=== PATIENT | female | born 1960 | race African-American/Black ===

== ENCOUNTER 2020-08-05 01:44 | Inpatient (IN) | payer MEDICAID ==
[~2020-08-05] VITALS: Ht 167.6 cm; Wt 154.5 kg
[~2020-08-05 01:44] MED LIST: BACL10TA PO; GABA300C10 PO; LEVO100T8 PO; MAGN400C2 PO; METO25TA5 PO
[2020-08-05 03:15] LABS: Basophils # (auto) 0.1 10 ^3/uL (0-0.2); Basophils % (auto) 1.6 % (0.0-2.0); Eosinophils # (auto) 0.1 10 ^3/uL (0-0.8); Eosinophils % (auto) 1.9 % (0.0-7.0); Hematocrit 38.5 % (36.0-46.0); Lymphocytes # (auto) 2.8 10 ^3/uL (0.4-5.4); Lymphocytes % (auto) 36.5 % (10.0-50.0); Mean Corpuscular Hgb Conc. 33.9 g/dL (32.0-36.0); Mean Corpuscular Volume 103.3 fL (80.0-100.0); Monocytes # (auto) 0.4 10 ^3/uL (0-1.3); Monocytes % (auto) 5.8 % (0.0-12.0); Neutrophils # (auto) 4.2 10 ^3/uL (1.6-8.6); Neutrophils % (auto) 54.2 % (37.0-80.0); Nucleated Red Blood Cells % 0.1 %; Platelet Count (auto) 250 10^3/uL (140-450); Red Blood Cells 3.73 10^6/uL (4.0-5.20); Red Cell Distribution Width 15.3 % (11.8-14.3); White Blood Cell 7.7 10^3/uL (4.4-10.8)
[2020-08-05 03:31] LABS: Albumin 3.3 g/dL (3.4-5.0); Calcium 8.4 mg/dL (8.5-10.1); Potassium 4.3 mmol/L (3.5-5.1)
[2020-08-05 03:34] LABS: BUN/Creatinine Ratio 8.1; Bilirubin, Total 0.4 mg/dL (0.2-1.0); Total Protein 8.1 g/dL (6.4-8.2)
[2020-08-05] MEDS ORDERED: SODIUM CHLORIDE 0.9% 1,000 ML IV SCH (05:44)
[2020-08-05] MEDS ORDERED: ACETAMINOPHEN 325 MG TAB PO PRN (05:45)
[2020-08-05] MEDS ORDERED: LORazepam 0.5 MG TAB PO PRN (05:45)
[2020-08-05] MEDS ORDERED: HYDROcodone-ACET 5/325MG TAB PO ONE (05:45)
[2020-08-05] MEDS ORDERED: ONDANSETRON HCL 4 MG/2 ML VIAL IV PRN (05:45)
[2020-08-05] MEDS ORDERED: DOCUSATE SOD 100 MG CAP PO PRN (05:45)
[2020-08-05] MEDS ORDERED: LIDOCAINE 1% HCL (LOCAL ANESTH.) INJ 20ML MDV ID ONE (05:45)
[2020-08-05] MEDS ORDERED: TEMAZEPAM 15 MG CAP PO PRN (05:45)
[2020-08-05 05:49] LABS: Urine Bacteria NONE SEEN /hpf (None Seen); Urine Blood Negative /uL (Negative); Urine Specific Gravity 1.003 (1.001-1.035); Urine WBC 1 /hpf (0 - 5)
[2020-08-05] MEDS ORDERED: MAGNESIUM SULFATE 1GM/100ML 100 ML IV ONE (08:45)
[2020-08-05 09:12] LABS: Amphetamine Screen, Urine NEGATIVE (NEGATIVE); Barbiturate Scree,Urine NEGATIVE (NEGATIVE); Benzodiazephine Screen, Urine NEGATIVE (NEGATIVE); Cannabinoid Screen, Urine NEGATIVE (NEGATIVE); Cocaine Screen, Urine NEGATIVE (NEGATIVE); Opiate Scree,Urine NEGATIVE (NEGATIVE); Phencyclidine Screen, Urine NEGATIVE (NEGATIVE)
[2020-08-05] MEDS ORDERED: FOLIC ACID 1 MG, MULTIPLE VITAMIN 10 ML, MAGNESIUM SULF SDV 50% 8 MEQ, THIAMINE INJ 100... INJ SCH ×5 (09:30)
[2020-08-05] MEDS ORDERED: LEVO200T7 PO (09:38)
[2020-08-05] MEDS: HYDROcodone-ACET 5/325MG TAB PO PRN ×3 (09:57→19:51)
[2020-08-05] MEDS: METOPROLOL TARTRATE 25 MG TAB PO SCH ×2 (10:00→22:10)
[2020-08-05] MEDS ORDERED: LEVOTHYROXINE SODIUM 100 MCG TAB PO ONE (11:15)
[2020-08-05] MEDS: FOLIC ACID 1 MG, MULTIPLE VITAMIN 10 ML, MAGNESIUM SULF SDV 50% 8 MEQ, THIAMINE INJ 100... INJ SCH ×5 (12:16)
[2020-08-05 12:35] VITALS: BP 134/71
[2020-08-05 17:00] VITALS: BP 143/88
[2020-08-05] MEDS ORDERED: DIPH25CA66 PO (17:19)
[2020-08-05] MEDS ORDERED: MULT1CHW18 PO (17:19)
[2020-08-05 20:00] VITALS: BP 150/85
[2020-08-05 22:00] VITALS: BP 150/85
[2020-08-06] MEDS: HYDROcodone-ACET 5/325MG TAB PO PRN ×3 (00:18→11:31)
[2020-08-06 05:00] VITALS: BP 143/70
[2020-08-06 05:52] LABS: Basophils # (auto) 0 10 ^3/uL (0-0.2); Basophils % (auto) 0.6 % (0.0-2.0); Eosinophils # (auto) 0.1 10 ^3/uL (0-0.8); Eosinophils % (auto) 1.4 % (0.0-7.0); Hematocrit 36.6 % (36.0-46.0); Hemoglobin 12.1 g/dL (12.2-16.2); Lymphocytes # (auto) 1.2 10 ^3/uL (0.4-5.4); Mean Corpuscular Hemoglobin 34.3 pg (28.0-32.0); Mean Corpuscular Hgb Conc. 33.1 g/dL (32.0-36.0); Mean Corpuscular Volume 103.5 fL (80.0-100.0); Monocytes # (auto) 0.4 10 ^3/uL (0-1.3); Monocytes % (auto) 7.4 % (0.0-12.0); Neutrophils # (auto) 3.5 10 ^3/uL (1.6-8.6); Neutrophils % (auto) 67.6 % (37.0-80.0); Nucleated Red Blood Cells % 0.2 %; Platelet Count (auto) 232 10^3/uL (140-450); Red Blood Cells 3.53 10^6/uL (4.0-5.20); Red Cell Distribution Width 14.9 % (11.8-14.3); White Blood Cell 5.2 10^3/uL (4.4-10.8)
[2020-08-06 06:14] LABS: Potassium 3.9 mmol/L (3.5-5.1)
[2020-08-06 06:23] LABS: Albumin 2.9 g/dL (3.4-5.0); Bilirubin, Total 0.6 mg/dL (0.2-1.0); Calcium 8.1 mg/dL (8.5-10.1); Total Protein 6.7 g/dL (6.4-8.2)
[2020-08-06] MEDS ORDERED: LEVOTHYROXINE SODIUM 100 MCG TAB PO SCH (07:00)
[2020-08-06 08:30] VITALS: BP 125/44
[2020-08-06 09:03] VITALS: BP 125/44
[2020-08-06] MEDS: FOLIC ACID 1 MG, MULTIPLE VITAMIN 10 ML, MAGNESIUM SULF SDV 50% 8 MEQ, THIAMINE INJ 100... INJ SCH ×5 (12:00)
[2020-08-06 12:42] VITALS: BP 145/66
[2020-08-06 14:15] VITALS: BP 145/61
[2020-08-07] MEDS ORDERED: amLODIPine BESYLATE 5 MG TAB PO SCH (10:00)
== END 2020-08-06 17:00 | disposition home or self-care (01) | DRG 384 ==
LOC: EDBD 01:44 → ER 01:46 → TELE-WESTW 01:47
PROVIDERS: ADMIT Hospitalist; ATTEND Internal Medicine
PROC: 0HQKXZZ Repair Right Lower Leg Skin, External Approach (ICD-10-PCS; principal; 2020-08-05)
DX: S91.011A Laceration without foreign body, right ankle, initial encounter (principal); R00.8 Other abnormalities of heart beat; I49.3 Ventricular premature depolarization; F10.129 Alcohol abuse with intoxication, unspecified; Y90.8 Blood alcohol level of 240 mg/100 ml or more; S93.401A Sprain of unspecified ligament of right ankle, initial encounter; E03.9 Hypothyroidism, unspecified; E66.9 Obesity, unspecified; Z68.43 Body mass index [BMI] 50.0-59.9, adult; I10 Essential (primary) hypertension; I27.21 Secondary pulmonary arterial hypertension; Z87.891 Personal history of nicotine dependence; Z88.8 Allergy status to other drugs, medicaments and biological substances; E78.5 Hyperlipidemia, unspecified; J44.9 Chronic obstructive pulmonary disease, unspecified; Z82.49 Family history of ischemic heart disease and other diseases of the circulatory system; Z82.5 Family history of asthma and other chronic lower respiratory diseases; Z83.3 Family history of diabetes mellitus; Z98.1 Arthrodesis status; Y93.89 Activity, other specified; Y92.89 Other specified places as the place of occurrence of the external cause; Y99.8 Other external cause status
CPT/HCPCS: 36415; 71045; 73600; 80053; 80307; 81001; 83735; 83880; 84443; 84484; 85025; 93005; 93306; G0378; J2001

== ENCOUNTER 2024-03-17 18:07 | Inpatient (IN) | payer MEDICAID, OTHER ==
[~2024-03-17] VITALS: Ht 162.6 cm; Wt 78.2 kg
[~2024-03-17 18:07] MED LIST changes: -BACL10TA PO; +DIPH25CA66 PO; -GABA300C10 PO; -LEVO100T8 PO; +LEVO200T7 PO; -MAGN400C2 PO; -METO25TA5 PO; +MULT1CHW18 PO
[2024-03-17 19:30] VITALS: PULSE 97; RESP 20; O2SAT 99
[2024-03-17 19:47] LABS: Basophils # (auto) 0 10 ^3/uL (0-0.2); Basophils % (auto) 0.6 % (0.0-2.0); Eosinophils # (auto) 0.3 10 ^3/uL (0-0.8); Eosinophils % (auto) 5.3 % (0.0-7.0); Hematocrit 27.8 % (36.0-46.0); Lymphocytes # (auto) 1.9 10 ^3/uL (0.4-5.4); Lymphocytes % (auto) 32.1 % (10.0-50.0); Mean Corpuscular Hemoglobin 31.9 pg (28.0-32.0); Mean Corpuscular Hgb Conc. 32.2 g/dL (32.0-36.0); Monocytes # (auto) 0.4 10 ^3/uL (0-1.3); Monocytes % (auto) 6.1 % (0.0-12.0); Neutrophils # (auto) 3.3 10 ^3/uL (1.6-8.6); Neutrophils % (auto) 55.9 % (37.0-80.0); Nucleated Red Blood Cells % 0.2 %; Red Blood Cells 2.81 10^6/uL (4.0-5.20); Red Cell Distribution Width 22.2 % (11.8-14.3)
[2024-03-17 19:56] LABS: Chloride 105 mmol/L (98-107); Potassium 2.6 mmol/L (3.5-5.1)
[2024-03-17 19:57] LABS: Calcium 8.7 mg/dL (8.7-10.4); Carbon Dioxide 24 mmol/L (20-30)
[2024-03-17 20:02] LABS: BUN/Creatinine Ratio 5.7 (10.0-20.0); Blood Urea Nitrogen 7 mg/dL (9-23); Glucose 122 mg/dL (74-106)
[2024-03-17 20:04] LABS: INR 1.16 (0.9-1.15); Partial Thromboplastin Time 27.7 SEC (24.5-34.5); Prothrombin Time 12.2 sec (9.3-11.8)
[2024-03-17] MEDS: PANTOPRAZOLE 40 MG/10 ML VIAL INJ IV ONE (20:23)
[2024-03-17 20:32] LABS: Anion Gap 11 (5-15); Sodium 140 mmol/L (136-145)
[2024-03-17 22:52] LABS: Urine Bacteria MOD /hpf (None Seen); Urine Blood 1+ /uL (Negative); Urine Budding Yeast MODERATE /hpf (None Seen); Urine Clarity Ex.Turbid (Clear); Urine Color STRAW (Yellow); Urine Hyaline Cast FEW /lpf (0 - 2); Urine Protein, UAD TRACE (Negative); Urine Specific Gravity 1.004 (1.001-1.035); Urine Urobilinogen Normal (Negative); Urine WBC 607 /hpf (0 - 5); Urine WBC Clumps PRESENT /hpf (None Seen); Urine pH 5.5 (5.0-9.0)
[2024-03-17] MEDS ORDERED: MORPHINE SULFATE INJ 2 MG/ml SYRG IV PRN (23:45)
[2024-03-17] MEDS ORDERED: DOCUSATE SOD 100 MG CAP PO PRN (23:45)
[2024-03-17] MEDS ORDERED: ONDANSETRON HCL 4 MG/2 ML VIAL IV PRN (23:45)
[2024-03-17] MEDS ORDERED: ACETAMINOPHEN 325 MG TAB PO PRN (23:45)
[2024-03-17] MEDS ORDERED: NITROGLYCERIN 0.4 MG SL TAB SL PRN (23:45)
[2024-03-17] MEDS: cefTRIAXone 1GM/50ML D5W 50 ML IV ONE (23:48)
[2024-03-17] MEDS: POTASSIUM CHL 20 Meq TABLET PO ONE (23:49)
[2024-03-18] MEDS: MORPHINE SULFATE INJ 2 MG/ml SYRG IV ONE (00:03)
[2024-03-18] MEDS: ONDANSETRON HCL 4 MG/2 ML VIAL IV ONE (00:04)
[2024-03-18 00:20] LABS: Lactic Acid w/Reflex 2.3 mmol/L (0.4-2.0)
[2024-03-18] MEDS ORDERED: D5W/SOD CHL 0.45% 1,000 ML IV ONE (03:45)
[2024-03-18] MEDS: SOD CHL 0.45% 1,000 ML IV SCH (03:45)
[2024-03-18] MEDS: HYDROcodone-ACET 5/325MG TAB PO PRN (05:17)
[2024-03-18] MEDS: LEVOTHYROXINE SODIUM 50 MCG TAB PO SCH (06:37)
[2024-03-18] MEDS: SODIUM CHLOR 0.9% PF (SALINE LOCK) 10ML VIAL/SYR IV SCH (06:41)
[2024-03-18 07:13] LABS: Eosinophils # (auto) 0.2 10 ^3/uL (0-0.8); Eosinophils % (auto) 3.5 % (0.0-7.0); Hemoglobin 7.5 g/dL (12.2-16.2); Monocytes # (auto) 0.5 10 ^3/uL (0-1.3); Neutrophils # (auto) 3.9 10 ^3/uL (1.6-8.6); White Blood Cell 6.4 10^3/uL (4.4-10.8)
[2024-03-18 07:15] LABS: Basophils # (auto) 0.1 10 ^3/uL (0-0.2); Basophils % (auto) 0.9 % (0.0-2.0); Hematocrit 23.5 % (36.0-46.0); Lymphocytes # (auto) 1.7 10 ^3/uL (0.4-5.4); Lymphocytes % (auto) 27.1 % (10.0-50.0); Mean Corpuscular Hemoglobin 32.1 pg (28.0-32.0); Mean Corpuscular Hgb Conc. 32.1 g/dL (32.0-36.0); Mean Corpuscular Volume 99.9 fL (80.0-100.0); Monocytes % (auto) 7.9 % (0.0-12.0); Neutrophils % (auto) 60.6 % (37.0-80.0); Red Blood Cells 2.36 10^6/uL (4.0-5.20); Red Cell Distribution Width 22.6 % (11.8-14.3)
[2024-03-18 07:25] LABS: Alanine Aminotransferase 52 U/L (7-40); Albumin 3.2 g/dL (3.2-4.8); Alkaline Phosphatase 139 U/L (46-116); Anion Gap 9 (5-15); Aspartate Aminotransferase 132 U/L (13-40); BUN/Creatinine Ratio 5.6 (10.0-20.0); Blood Urea Nitrogen 7 mg/dL (9-23); Calcium 7.9 mg/dL (8.5-10.1); Carbon Dioxide 22 mmol/L (20-30); Chloride 112 mmol/L (98-107); Glucose 112 mg/dL (74-106); Potassium 3.4 mmol/L (3.5-5.1); Sodium 143 mmol/L (136-145)
[2024-03-18 07:26] LABS: Bilirubin, Total 0.3 mg/dL (0.2-1.0); Total Protein 6.2 g/dL (5.7-8.2)
[2024-03-18 07:30] VITALS: PULSE 83
[2024-03-18 08:20] VITALS: BP 124/65; PULSE 84; RESP 20; TEMP 98.3
[2024-03-18 09:00] VITALS: BP 124/65; PULSE 84; RESP 20; TEMP 98.3; O2SAT 97
[2024-03-18] MEDS: FAMOTIDINE (10MG/ML) 2ML VL IV SCH (09:04)
[2024-03-18 12:28] VITALS: BP 153/75; PULSE 89; RESP 21; TEMP 98.3; O2SAT 95
[2024-03-18] MEDS: D5W/SOD CHL 0.9%/KCL 40MEQ 1,000 ML IV ONE (13:42)
[2024-03-18 14:01] LABS: Hemoglobin 7.5 g/dL (12.2-16.2)
[2024-03-18] MEDS ORDERED: KETO0.5S31 EACHEYE (14:03)
[2024-03-18] MEDS ORDERED: OFL50TS OT (14:03)
[2024-03-18] MEDS ORDERED: PRED1SUS4 OP (14:03)
[2024-03-18] MEDS ORDERED: AMLO1TAB22 PO (14:04)
[2024-03-18] MEDS ORDERED: KETO0.5S31 RIGHTEYE (14:38)
[2024-03-18] MEDS ORDERED: OFL50TS RIGHTEYE (14:39)
[2024-03-18 17:04] VITALS: BP 137/66; PULSE 84; RESP 20; TEMP 97.9; O2SAT 98
[2024-03-18] MEDS ORDERED: prednisoLONE ACETATE 1% OPTH SUSP 5ML OP SCH (18:00)
[2024-03-18] MEDS ORDERED: OFLOXACIN OTIC(EAR) 0.3 % DROP 5ML OT SCH (18:00)
[2024-03-18] MEDS: prednisoLONE ACETATE 1% OPTH SUSP 5ML RIGHTEYE SCH (18:00)
[2024-03-18] MEDS: [UNRECOGNIZED DRUG - OTHER] RIGHTEYE SCH (18:17)
[2024-03-18] MEDS: [UNRECOGNIZED DRUG - OTHER] RIGHTEYE SCH (18:17)
[2024-03-18 21:00] VITALS: BP 121/57; PULSE 90; RESP 18; TEMP 98.2; O2SAT 98
[2024-03-18] MEDS: cefTRIAXone 1GM/50ML D5W 50 ML IV SCH (21:57)
[2024-03-18] MEDS: PANTOPRAZOLE 40 MG TAB PO SCH (21:58)
[2024-03-19 01:00] VITALS: BP 130/69; PULSE 92; RESP 18; TEMP 97.7; O2SAT 95
[2024-03-19 05:00] VITALS: BP 132/61; PULSE 75; RESP 18; TEMP 98.2; O2SAT 97
[2024-03-19 07:27] LABS: Anion Gap 7 (5-15); Carbon Dioxide 24 mmol/L (20-30); Chloride 109 mmol/L (98-107); Potassium 3.4 mmol/L (3.5-5.1); Sodium 140 mmol/L (136-145)
[2024-03-19 07:28] LABS: Calcium 8.1 mg/dL (8.7-10.4)
[2024-03-19 07:33] LABS: BUN/Creatinine Ratio 3.9 (10.0-20.0); Blood Urea Nitrogen 5 mg/dL (9-23); Glucose 98 mg/dL (74-106)
[2024-03-19 08:30] VITALS: BP 123/62; PULSE 80; RESP 14; TEMP 97.6
[2024-03-19 08:52] VITALS: BP 123/62; PULSE 80; RESP 14; TEMP 97.6; O2SAT 96
[2024-03-19] MEDS: amLODIPine BESYLATE 5 MG TAB PO SCH (09:19)
[2024-03-19] MEDS ORDERED: PANT40TA2 PO (10:03)
[2024-03-19] MEDS ORDERED: CEPH500C PO (10:05)
[2024-03-19] MEDS ORDERED: DIPH50TA9 PO (10:05)
[2024-03-19 10:43] VITALS: BP 123/62; PULSE 80; RESP 14; TEMP 97.6; O2SAT 96
[2024-03-19 10:55] LABS: Hematocrit 22.2 % (36.0-46.0); Hemoglobin 7.1 g/dL (12.2-16.2)
== END 2024-03-19 17:00 | disposition home or self-care (01) | DRG 253 ==
LOC: ER 18:07 → EDBD 18:07 → EDUNIT# 18:07 → TELE 23:52 → TELE-WESTW 03-18 03:50 → WEST WING 03-19 01:57
PROVIDERS: ADMIT Nurse Practitioner Acute Care; ATTEND Nurse Practitioner Acute Care
DX: K92.2 Gastrointestinal hemorrhage, unspecified (principal); R71.0 Precipitous drop in hematocrit; N39.0 Urinary tract infection, site not specified; E87.6 Hypokalemia; E66.9 Obesity, unspecified; E03.9 Hypothyroidism, unspecified; K59.00 Constipation, unspecified; I10 Essential (primary) hypertension; Z88.2 Allergy status to sulfonamides; Z79.899 Other long term (current) drug therapy; Z79.2 Long term (current) use of antibiotics; Z82.49 Family history of ischemic heart disease and other diseases of the circulatory system; Z87.891 Personal history of nicotine dependence; Z83.3 Family history of diabetes mellitus; Z82.5 Family history of asthma and other chronic lower respiratory diseases; Z90.49 Acquired absence of other specified parts of digestive tract; Z68.29 Body mass index [BMI] 29.0-29.9, adult
CPT/HCPCS: 36415; 74176; 80048; 80053; 81001; 82270; 83036; 83605; 84443; 85014; 85018; 85025; 85610; 85730; 86850; 86900; 86901; 87040; 87086; C9113; G0378; J2405; J3490

== ENCOUNTER 2024-03-22 21:23 | Inpatient (IN) | payer MEDICAID, OTHER ==
[~2024-03-22] VITALS: Ht 167.6 cm; Wt 72.1 kg
[~2024-03-22 21:23] MED LIST changes: +AMLO1TAB22 PO; +CEPH500C PO; +DIPH50TA9 PO; +KETO0.5S31 RIGHTEYE; -MULT1CHW18 PO; +OFL50TS RIGHTEYE; +PANT40TA2 PO; +PRED1SUS4 OP
[2024-03-22 23:46] LABS: Basophils # (auto) 0 10 ^3/uL (0-0.2); Basophils % (auto) 0.7 % (0.0-2.0); Eosinophils # (auto) 0.2 10 ^3/uL (0-0.8); Eosinophils % (auto) 4.2 % (0.0-7.0); Hematocrit 18.4 % (36.0-46.0); Lymphocytes # (auto) 1.5 10 ^3/uL (0.4-5.4); Lymphocytes % (auto) 26.8 % (10.0-50.0); Mean Corpuscular Hemoglobin 31.9 pg (28.0-32.0); Mean Corpuscular Hgb Conc. 31.3 g/dL (32.0-36.0); Mean Corpuscular Volume 101.9 fL (80.0-100.0); Monocytes # (auto) 0.5 10 ^3/uL (0-1.3); Monocytes % (auto) 9.1 % (0.0-12.0); Neutrophils # (auto) 3.3 10 ^3/uL (1.6-8.6); Neutrophils % (auto) 59.2 % (37.0-80.0); White Blood Cell 5.6 10^3/uL (4.4-10.8)
[2024-03-22 23:48] LABS: Hemoglobin 5.7 g/dL (12.2-16.2)
[2024-03-22 23:50] LABS: Alanine Aminotransferase 32 U/L (7-40); Alkaline Phosphatase 144 U/L (46-116); Anion Gap 9 (5-15); Aspartate Aminotransferase 59 U/L (13-40); BUN/Creatinine Ratio 7.8 (10.0-20.0); Blood Urea Nitrogen 9 mg/dL (9-23); Calcium 8.1 mg/dL (8.7-10.4); Carbon Dioxide 20 mmol/L (20-30); Chloride 107 mmol/L (98-107); Glucose 91 mg/dL (74-106); Potassium 4.1 mmol/L (3.5-5.1); Sodium 136 mmol/L (136-145)
[2024-03-22 23:51] LABS: Albumin 3.2 g/dL (3.2-4.8); Bilirubin, Total 0.4 mg/dL (0.2-1.0); Total Protein 5.9 g/dL (5.7-8.2)
[2024-03-22 23:59] LABS: INR 1.15 (0.9-1.15); Partial Thromboplastin Time 21.4 SEC (24.5-34.5); Prothrombin Time 12.1 sec (9.3-11.8)
[2024-03-23] VITALS (9 sets, daily range): BP systolic 98–143; BP diastolic 48–68; PULSE 70–88; RESP 11–18; TEMP 97.8–98.5; O2SAT 96–98
[2024-03-23 00:47] LABS: Anisocytosis Slight; Macrocytosis Slight
[2024-03-23 00:48] LABS: Ovalocytes FEW; Platelet Estimate Adequate
[2024-03-23] MEDS ORDERED: NITROGLYCERIN 0.4 MG SL TAB SL PRN (01:15)
[2024-03-23] MEDS ORDERED: ONDANSETRON HCL 4 MG/2 ML VIAL IV PRN (01:15)
[2024-03-23] MEDS ORDERED: MORPHINE SULFATE INJ 2 MG/ml SYRG IV PRN ×2 (01:15→18:30)
[2024-03-23] MEDS: ONDANSETRON HCL 4 MG/2 ML VIAL IV ONE (01:22)
[2024-03-23] MEDS: MORPHINE SULFATE INJ 2 MG/ml SYRG IV ONE (01:23)
[2024-03-23] MEDS: OCTREOTIDE ACETATE 100 MCG/ML VL ONE (01:33)
[2024-03-23] MEDS: PANTOPRAZOLE 40 MG/10 ML VIAL INJ IV ONE (01:33)
[2024-03-23] MEDS: OCTREOTIDE ACETATE 500 MCG/ML VL ONE (01:33)
[2024-03-23] MEDS: PANTOPRAZOLE 80 MG in SODIUM CHL 0.9% 100 ML IV ONE (01:47)
[2024-03-23] MEDS: OCTREOTIDE ACETATE 100 MCG in SODIUM CHL 0.9% 50 ML IV ONE (01:48)
[2024-03-23] MEDS: PANTOPRAZOLE 40mg/50ML NS AE 50 ML IV ONE (01:48)
[2024-03-23] MEDS: PANTOPRAZOLE 40mg/50ML NS AE 50 ML IV SCH (02:00)
[2024-03-23] MEDS: OCTREOTIDE ACETATE 500 MCG in SODIUM CHL 0.9% 99 ML IV SCH (03:00)
[2024-03-23] MEDS: D5W/SOD CHLO 0.9% 1,000 ML IV SCH (03:17)
[2024-03-23] MEDS: MORPHINE SULFATE INJ 2 MG/ml SYRG IV PRN (06:11)
[2024-03-23 08:07] LABS: Hemoglobin 8.1 g/dL (12.2-16.2)
[2024-03-23 08:11] LABS: Hematocrit 24.8 % (36.0-46.0)
[2024-03-23 13:30] LABS: Hepatitis B Core Total AB Negative (Negative)
[2024-03-23 14:18] LABS: Hepatitis A Total Antibody Negative (Negative); Hepatitis B Surface Antibody Negative (Negative)
[2024-03-23 14:19] LABS: Hepatitis B Surface Antigen Negative (Negative)
[2024-03-23 14:20] LABS: Hepatitis C Antibody Reactive (Negative)
[2024-03-23] MEDS ORDERED: LEVO150T10 PO (17:13)
[2024-03-23] MEDS ORDERED: PANT40TA57 PO (17:13)
[2024-03-23] MEDS: HYDROcodone-ACET 5/325MG TAB PO PRN (18:42)
[2024-03-24] VITALS (8 sets, daily range): BP systolic 137–149; BP diastolic 71–77; PULSE 69–91; RESP 16–18; TEMP 98–98.3; O2SAT 96–100
[2024-03-24 05:27] LABS: Basophils # (auto) 0 10 ^3/uL (0-0.2); Basophils % (auto) 0.8 % (0.0-2.0); Eosinophils # (auto) 0.4 10 ^3/uL (0-0.8); Hematocrit 24.9 % (36.0-46.0); Hemoglobin 8.1 g/dL (12.2-16.2); Lymphocytes # (auto) 1.5 10 ^3/uL (0.4-5.4); White Blood Cell 5.5 10^3/uL (4.4-10.8)
[2024-03-24 05:34] LABS: Eosinophils % (auto) 7.2 % (0.0-7.0); Lymphocytes % (auto) 27.7 % (10.0-50.0); Mean Corpuscular Hemoglobin 30.2 pg (28.0-32.0); Mean Corpuscular Hgb Conc. 32.6 g/dL (32.0-36.0); Mean Corpuscular Volume 92.8 fL (80.0-100.0); Monocytes # (auto) 0.5 10 ^3/uL (0-1.3); Monocytes % (auto) 9.5 % (0.0-12.0); Neutrophils % (auto) 54.8 % (37.0-80.0); Red Blood Cells 2.68 10^6/uL (4.0-5.20)
[2024-03-24 05:51] LABS: Alanine Aminotransferase 25 U/L (7-40); Alkaline Phosphatase 99 U/L (46-116); Anion Gap 7 (5-15); Calcium 8.2 mg/dL (8.7-10.4); Carbon Dioxide 23 mmol/L (20-30); Chloride 108 mmol/L (98-107); Glucose 137 mg/dL (74-106); Magnesium 1.1 mg/dL (1.6-2.6); Potassium 3.8 mmol/L (3.5-5.1); Sodium 138 mmol/L (136-145)
[2024-03-24 05:52] LABS: Albumin 3.3 g/dL (3.2-4.8); Aspartate Aminotransferase 43 U/L (13-40)
[2024-03-24 05:53] LABS: Bilirubin, Total 0.6 mg/dL (0.2-1.0)
[2024-03-24 06:03] LABS: BUN/Creatinine Ratio 4.5 (10.0-20.0); Blood Urea Nitrogen < 5 mg/dL (9-23)
[2024-03-24] MEDS ORDERED: diphenhdrAMINE HCL 50 MG/1 ML VL ONE (07:25)
[2024-03-24] MEDS ORDERED: fentaNYL CITRATE 100 MCG/2 ML VL ONE ×2 (07:25→16:02)
[2024-03-24] MEDS ORDERED: MIDAZOLAM HCL 5 MG/ML-1ML VIAL ONE (07:25)
[2024-03-24] MEDS ORDERED: LIDOCAINE VISCOUS 2% 15ML UD ONE (07:25)
[2024-03-24] MEDS: MAGNESIUM SULFATE 1GM/100ML 100 ML IV SCH (14:04)
[2024-03-24] MEDS ORDERED: ONDANSETRON HCL 4 MG/2 ML VIAL ONE (16:22)
[2024-03-24] MEDS ORDERED: LIDOCAINE 1% INJ PF 5ML AMP ONE (16:22)
[2024-03-24] MEDS ORDERED: PROPOFOL 10 MG/ML 20 ML IV ONE (16:22)
[2024-03-24] MEDS ORDERED: KETAMINE 50mg/ML 10ml Vial 10 ML ONE (17:11)
[2024-03-24] MEDS: SUCRALFATE 1 GM/10 ML ORAL SUSP PO SCH (18:42)
[2024-03-25] VITALS (7 sets, daily range): BP systolic 134–153; BP diastolic 50–75; PULSE 67–74; RESP 16–20; TEMP 97.9–98.8; O2SAT 93–98
[2024-03-25 05:37] LABS: Basophils # (auto) 0 10 ^3/uL (0-0.2); Basophils % (auto) 0.5 % (0.0-2.0); Eosinophils # (auto) 0.3 10 ^3/uL (0-0.8); Hemoglobin 7.5 g/dL (12.2-16.2); Lymphocytes # (auto) 1.2 10 ^3/uL (0.4-5.4); Monocytes # (auto) 0.5 10 ^3/uL (0-1.3); White Blood Cell 5.6 10^3/uL (4.4-10.8)
[2024-03-25 05:39] LABS: Eosinophils % (auto) 5.8 % (0.0-7.0); Lymphocytes % (auto) 22.3 % (10.0-50.0); Mean Corpuscular Hgb Conc. 32.5 g/dL (32.0-36.0); Mean Corpuscular Volume 92.5 fL (80.0-100.0); Monocytes % (auto) 8.2 % (0.0-12.0); Neutrophils # (auto) 3.5 10 ^3/uL (1.6-8.6); Neutrophils % (auto) 63.2 % (37.0-80.0); Red Blood Cells 2.49 10^6/uL (4.0-5.20)
[2024-03-25 05:41] LABS: Red Cell Distribution Width 23.5 % (11.8-14.3)
[2024-03-25 05:46] LABS: Anion Gap 7 (5-15); Carbon Dioxide 22 mmol/L (20-30); Chloride 109 mmol/L (98-107); Potassium 3.7 mmol/L (3.5-5.1); Sodium 138 mmol/L (136-145)
[2024-03-25 05:52] LABS: Glucose 125 mg/dL (74-106)
[2024-03-25 05:53] LABS: BUN/Creatinine Ratio 4.7 (10.0-20.0); Blood Urea Nitrogen < 5 mg/dL (9-23)
[2024-03-25 06:03] LABS: Magnesium 1.4 mg/dL (1.6-2.6)
[2024-03-26] VITALS (7 sets, daily range): BP systolic 145–161; BP diastolic 72–84; PULSE 70–82; RESP 16–20; TEMP 98–98.4; O2SAT 94–100
[2024-03-26] MEDS: amLODIPine BESYLATE 5 MG TAB PO ONE (09:31)
[2024-03-26 15:41] LABS: Eosinophils # (auto) 0.3 10 ^3/uL (0-0.8); Hemoglobin 8.3 g/dL (12.2-16.2); Lymphocytes # (auto) 1.1 10 ^3/uL (0.4-5.4); Monocytes # (auto) 0.6 10 ^3/uL (0-1.3)
[2024-03-26 15:43] LABS: Basophils # (auto) 0 10 ^3/uL (0-0.2); Basophils % (auto) 0.6 % (0.0-2.0); Eosinophils % (auto) 3.6 % (0.0-7.0); Hematocrit 25.8 % (36.0-46.0); Lymphocytes % (auto) 14.2 % (10.0-50.0); Mean Corpuscular Hemoglobin 29.9 pg (28.0-32.0); Mean Corpuscular Hgb Conc. 32.2 g/dL (32.0-36.0); Mean Corpuscular Volume 92.9 fL (80.0-100.0); Monocytes % (auto) 8.3 % (0.0-12.0); Neutrophils # (auto) 5.6 10 ^3/uL (1.6-8.6); Neutrophils % (auto) 73.3 % (37.0-80.0); Red Blood Cells 2.78 10^6/uL (4.0-5.20); White Blood Cell 7.7 10^3/uL (4.4-10.8)
[2024-03-26 15:45] LABS: Red Cell Distribution Width 23.2 % (11.8-14.3)
[2024-03-26] MEDS ORDERED: PANT40TA2 PO (17:16)
[2024-03-26] MEDS ORDERED: SUCR1SUS5 PO (17:16)
[2024-03-27] MEDS ORDERED: amLODIPine BESYLATE 5 MG TAB PO SCH (10:00)
== END 2024-03-26 20:20 | disposition home or self-care (01) | DRG 663 ==
LOC: EDBD 21:23 → ER 21:23 → TELE 03-23 01:05 → TELE-WESTW 03-23 16:25
PROVIDERS: ADMIT Nurse Practitioner; ATTEND Internal Medicine Geriatric Medicine
PROC: 30233N1 Transfusion of Nonautologous Red Blood Cells into Peripheral Vein, Percutaneous Approach (ICD-10-PCS; 2024-03-23)
PROC: 0DB68ZX Excision of Stomach, Via Natural or Artificial Opening Endoscopic, Diagnostic (ICD-10-PCS; 2024-03-24)
PROC: 0DB98ZX Excision of Duodenum, Via Natural or Artificial Opening Endoscopic, Diagnostic (ICD-10-PCS; principal; 2024-03-24 15:58)
DX: D62 Acute posthemorrhagic anemia (principal); K29.91 Gastroduodenitis, unspecified, with bleeding; N17.9 Acute kidney failure, unspecified; K22.11 Ulcer of esophagus with bleeding; E03.9 Hypothyroidism, unspecified; I12.9 Hypertensive chronic kidney disease with stage 1 through stage 4 chronic kidney disease, or unspecified chronic kidney disease; N18.9 Chronic kidney disease, unspecified; R79.89 Other specified abnormal findings of blood chemistry; K44.9 Diaphragmatic hernia without obstruction or gangrene; E83.42 Hypomagnesemia; Z90.49 Acquired absence of other specified parts of digestive tract; Z93.3 Colostomy status; Z88.8 Allergy status to other drugs, medicaments and biological substances; Z87.891 Personal history of nicotine dependence; Z82.49 Family history of ischemic heart disease and other diseases of the circulatory system
CPT/HCPCS: 36415; 74176; 76705; 80048; 80053; 83735; 83880; 84484; 85014; 85018; 85025; 85610; 85730; 86704; 86706; 86708; 86803; 86850; 86900; 86901; 86920; 87081; 87340; 93005; C9113; G0378; J2250; J2405; J2704; J7042

== ENCOUNTER 2024-05-16 01:04 | Inpatient (IN) | payer MEDICAID ==
[2024-05-16] VITALS (11 sets, daily range): BP systolic 88–125; BP diastolic 45–78; PULSE 63–108; RESP 13–18; TEMP 97.4–97.8; O2SAT 95–98
[~2024-05-16] VITALS: Ht 165.1 cm; Wt 85.7 kg
[~2024-05-16 01:04] MED LIST changes: -DIPH50TA9 PO; +PANT40TA57 PO; +SUCR1SUS5 PO
[2024-05-16 01:41] LABS: Basophils # (auto) 0.1 10 ^3/uL (0-0.2); Eosinophils # (auto) 0.3 10 ^3/uL (0-0.8); Monocytes # (auto) 1.6 10 ^3/uL (0-1.3)
[2024-05-16 01:43] LABS: Basophils % (auto) 0.6 % (0.0-2.0); Eosinophils % (auto) 2.5 % (0.0-7.0); Hematocrit 19.7 % (36.0-46.0); Lymphocytes # (auto) 2.9 10 ^3/uL (0.4-5.4); Lymphocytes % (auto) 22.5 % (10.0-50.0); Mean Corpuscular Hgb Conc. 31.8 g/dL (32.0-36.0); Mean Corpuscular Volume 97.6 fL (80.0-100.0); Monocytes % (auto) 12.3 % (0.0-12.0); Neutrophils # (auto) 8.1 10 ^3/uL (1.6-8.6); Neutrophils % (auto) 62.1 % (37.0-80.0); Nucleated Red Blood Cells % 0.2 %; Red Blood Cells 2.01 10^6/uL (4.0-5.20); White Blood Cell 13.1 10^3/uL (4.4-10.8)
[2024-05-16 01:44] LABS: Red Cell Distribution Width 24.9 % (11.8-14.3)
[2024-05-16 01:45] LABS: Hemoglobin 6.2 g/dL (12.2-16.2)
[2024-05-16 01:49] LABS: Chloride 96 mmol/L (98-107); Sodium 126 mmol/L (136-145)
[2024-05-16 01:50] LABS: Anion Gap 16 (5-15); Carbon Dioxide 14 mmol/L (20-30)
[2024-05-16 01:51] LABS: Calcium 8.1 mg/dL (8.7-10.4)
[2024-05-16 01:55] LABS: Blood Urea Nitrogen 18 mg/dL (9-23); Glucose 134 mg/dL (74-106)
[2024-05-16] MEDS: MORPHINE SULFATE 4 MG/ML SYR/VIAL IV ONE (02:47)
[2024-05-16] MEDS: ONDANSETRON HCL 4 MG/2 ML VIAL IV ONE (02:48)
[2024-05-16 02:51] LABS: Anisocytosis Moderate; Ovalocytes FEW; Platelet Estimate Adequate
[2024-05-16] MEDS ORDERED: NITROGLYCERIN 0.4 MG SL TAB SL PRN (04:30)
[2024-05-16] MEDS: ONDANSETRON HCL 4 MG/2 ML VIAL IV PRN (05:52)
[2024-05-16] MEDS: SODIUM CHLORIDE 0.9% 1,000 ML IV SCH (05:53)
[2024-05-16] MEDS: MORPHINE SULFATE INJ 2 MG/ml SYRG IV PRN ×2 (05:54→18:30)
[2024-05-16] MEDS: PANTOPRAZOLE 80 MG in SODIUM CHL 0.9% 100 ML IV ONE (06:11)
[2024-05-16] MEDS: PANTOPRAZOLE 40 MG/10 ML VIAL INJ IV ONE (06:12)
[2024-05-16] MEDS: PANTOPRAZOLE 40mg/50ML NS AE 50 ML IV SCH (06:55)
[2024-05-16 07:51] LABS: Hematocrit 20.9 % (36.0-46.0)
[2024-05-16 08:08] LABS: Hemoglobin 6.9 g/dL (12.2-16.2); INR 1.16 (0.9-1.15); Partial Thromboplastin Time 30.7 SEC (24.5-34.5); Prothrombin Time 12.2 sec (9.3-11.8)
[2024-05-16] MEDS: diphenhdrAMINE HCL 50 MG/1 ML VL IV ONE (11:48)
[2024-05-16] MEDS: POTASSIUM CHL 20MEQ/100ML 100 ML IV SCH (11:48)
[2024-05-16] MEDS ORDERED: PANT40T PO (15:37)
[2024-05-16] MEDS ORDERED: SUCR1SUS26 PO (15:37)
[2024-05-16] MEDS: SUCRALFATE 1 GM TAB PO SCH (17:11)
[2024-05-16] MEDS ORDERED: ACETAMINOPHEN 325 MG TAB PO PRN (17:45)
[2024-05-16 19:16] LABS: Hematocrit 24.8 % (36.0-46.0)
[2024-05-16 19:36] LABS: Free T3 0.8 pg/mL (2.3-4.2)
[2024-05-16 19:37] LABS: Free T4 (Free Thyroxine) 0.32 ng/dL (0.89-1.76)
[2024-05-17] VITALS (8 sets, daily range): BP systolic 99–125; BP diastolic 51–77; PULSE 73–81; RESP 16–18; TEMP 97.4–98; O2SAT 95–99
[2024-05-17 06:06] LABS: Basophils # (auto) 0.1 10 ^3/uL (0-0.2); Hemoglobin 7.3 g/dL (12.2-16.2); Mean Corpuscular Hgb Conc. 34.3 g/dL (32.0-36.0); Monocytes # (auto) 0.8 10 ^3/uL (0-1.3); Red Blood Cells 2.23 10^6/uL (4.0-5.20); White Blood Cell 8.9 10^3/uL (4.4-10.8)
[2024-05-17 06:09] LABS: Basophils % (auto) 1.2 % (0.0-2.0); Eosinophils # (auto) 0.1 10 ^3/uL (0-0.8); Eosinophils % (auto) 1.6 % (0.0-7.0); Hematocrit 21.3 % (36.0-46.0); Lymphocytes # (auto) 1.7 10 ^3/uL (0.4-5.4); Lymphocytes % (auto) 18.5 % (10.0-50.0); Mean Corpuscular Hemoglobin 32.8 pg (28.0-32.0); Mean Corpuscular Volume 95.6 fL (80.0-100.0); Monocytes % (auto) 8.9 % (0.0-12.0); Neutrophils # (auto) 6.2 10 ^3/uL (1.6-8.6); Neutrophils % (auto) 69.8 % (37.0-80.0); Nucleated Red Blood Cells % 0.1 %
[2024-05-17 06:15] LABS: Red Cell Distribution Width 21.6 % (11.8-14.3)
[2024-05-17 06:23] LABS: Alanine Aminotransferase 34 U/L (7-40); Alkaline Phosphatase 151 U/L (46-116); Anion Gap 9 (5-15); Aspartate Aminotransferase 61 U/L (13-40); BUN/Creatinine Ratio 9.2 (10.0-20.0); Blood Urea Nitrogen 14 mg/dL (9-23); Calcium 7.6 mg/dL (8.5-10.1); Carbon Dioxide 20 mmol/L (20-30); Chloride 106 mmol/L (98-107); Glucose 106 mg/dL (74-106); Potassium 3.7 mmol/L (3.5-5.1)
[2024-05-17 06:25] LABS: Bilirubin, Total 0.4 mg/dL (0.2-1.0)
[2024-05-17 06:31] LABS: Sodium 135 mmol/L (136-145)
[2024-05-17 07:51] LABS: % Iron Saturation 20.3 % (15-50)
[2024-05-17] MEDS: LEVOTHYROXINE SODIUM 112 MCG TAB PO SCH (09:53)
[2024-05-17] MEDS: LEVOTHYROXINE SODIUM 25 MCG TAB PO SCH (09:53)
[2024-05-17 11:02] LABS: Hematocrit 23.5 % (36.0-46.0); Hemoglobin 7.7 g/dL (12.2-16.2)
[2024-05-17] MEDS: HYDROcodone-ACET 5/325MG TAB PO PRN (23:28)
[2024-05-18] VITALS (11 sets, daily range): BP systolic 110–134; BP diastolic 50–96; PULSE 63–89; RESP 14–18; TEMP 97.1–98.3; O2SAT 96–100
[2024-05-18 06:29] LABS: Basophils # (auto) 0.1 10 ^3/uL (0-0.2); Eosinophils # (auto) 0.3 10 ^3/uL (0-0.8); Lymphocytes # (auto) 2.4 10 ^3/uL (0.4-5.4); Monocytes # (auto) 0.8 10 ^3/uL (0-1.3); Nucleated Red Blood Cells % 0.1 %; White Blood Cell 9.1 10^3/uL (4.4-10.8)
[2024-05-18 06:30] LABS: Basophils % (auto) 0.8 % (0.0-2.0); Eosinophils % (auto) 3.3 % (0.0-7.0); Hematocrit 20.1 % (36.0-46.0); Lymphocytes % (auto) 26.7 % (10.0-50.0); Mean Corpuscular Hemoglobin 32.6 pg (28.0-32.0); Mean Corpuscular Hgb Conc. 34.2 g/dL (32.0-36.0); Mean Corpuscular Volume 95.2 fL (80.0-100.0); Monocytes % (auto) 9.1 % (0.0-12.0); Neutrophils # (auto) 5.5 10 ^3/uL (1.6-8.6); Neutrophils % (auto) 60.1 % (37.0-80.0); Red Blood Cells 2.12 10^6/uL (4.0-5.20)
[2024-05-18 06:39] LABS: Hemoglobin 6.9 g/dL (12.2-16.2)
[2024-05-18 06:40] LABS: Red Cell Distribution Width 21.5 % (11.8-14.3)
[2024-05-18 06:48] LABS: Alanine Aminotransferase 29 U/L (7-40); Albumin 3.1 g/dL (3.2-4.8); Alkaline Phosphatase 129 U/L (46-116); Anion Gap 8 (5-15); Aspartate Aminotransferase 53 U/L (13-40); BUN/Creatinine Ratio 7.3 (10.0-20.0); Blood Urea Nitrogen 9 mg/dL (9-23); Calcium 7.5 mg/dL (8.5-10.1); Carbon Dioxide 19 mmol/L (20-30); Chloride 107 mmol/L (98-107); Glucose 92 mg/dL (74-106); Potassium 3.7 mmol/L (3.5-5.1); Sodium 134 mmol/L (136-145)
[2024-05-18 06:49] LABS: Bilirubin, Total 0.3 mg/dL (0.2-1.0); Total Protein 5.9 g/dL (5.7-8.2)
[2024-05-18 21:24] LABS: Hematocrit 25.6 % (36.0-46.0); Hemoglobin 8.5 g/dL (12.2-16.2)
[2024-05-19 05:00] VITALS: BP 117/75; PULSE 83; RESP 17; TEMP 98.3; O2SAT 98
[2024-05-19 06:57] LABS: Basophils # (auto) 0.1 10 ^3/uL (0-0.2); Basophils % (auto) 1.3 % (0.0-2.0); Eosinophils # (auto) 0.3 10 ^3/uL (0-0.8); Eosinophils % (auto) 3.6 % (0.0-7.0); Hematocrit 26.5 % (36.0-46.0); Hemoglobin 8.8 g/dL (12.2-16.2); Lymphocytes % (auto) 21.4 % (10.0-50.0); Mean Corpuscular Hemoglobin 32.5 pg (28.0-32.0); Mean Corpuscular Hgb Conc. 33.3 g/dL (32.0-36.0); Mean Corpuscular Volume 97.9 fL (80.0-100.0); Monocytes # (auto) 0.5 10 ^3/uL (0-1.3); Monocytes % (auto) 5.7 % (0.0-12.0); Neutrophils # (auto) 6.4 10 ^3/uL (1.6-8.6); Nucleated Red Blood Cells % 0.1 %; Red Blood Cells 2.71 10^6/uL (4.0-5.20); Red Cell Distribution Width 18.8 % (11.8-14.3); White Blood Cell 9.4 10^3/uL (4.4-10.8)
[2024-05-19 07:24] LABS: Alanine Aminotransferase 24 U/L (7-40); Albumin 2.9 g/dL (3.2-4.8); Alkaline Phosphatase 134 U/L (46-116); Anion Gap 7 (5-15); Aspartate Aminotransferase 48 U/L (13-40); BUN/Creatinine Ratio 5.6 (10.0-20.0); Bilirubin, Total 0.3 mg/dL (0.2-1.0); Blood Urea Nitrogen 7 mg/dL (9-23); Calcium 7.7 mg/dL (8.5-10.1); Carbon Dioxide 21 mmol/L (20-30); Chloride 110 mmol/L (98-107); Glucose 99 mg/dL (74-106); Sodium 138 mmol/L (136-145); Total Protein 5.8 g/dL (5.7-8.2)
[2024-05-19 08:00] VITALS: PULSE 61; PULSE 71; RESP 17; O2SAT 99
[2024-05-19 08:52] VITALS: BP 137/70; PULSE 65; RESP 17; TEMP 97.6; O2SAT 99
[2024-05-19] MEDS: diphenhdrAMINE HCL 50 MG/1 ML VL IV ONE (10:58)
[2024-05-19] MEDS ORDERED: PANT40T PO (12:22)
[2024-05-19] MEDS ORDERED: SUCR1TAB31 OR (12:22)
[2024-05-19 12:40] VITALS: BP 149/76; PULSE 78; RESP 17; TEMP 97.6; O2SAT 98
[2024-05-19 15:38] VITALS: BP 149/76; PULSE 78; RESP 17; TEMP 97.6; O2SAT 98
[2024-05-19 16:40] VITALS: BP 143/73; PULSE 52; RESP 17; TEMP 97.9; O2SAT 95
== END 2024-05-19 19:15 | disposition home or self-care (01) | DRG 253 ==
LOC: ER 01:04 → EDBD 01:04 → TELE 04:28 → TELE-WESTW 14:55
PROVIDERS: ADMIT Internal Medicine Pulmonary Disease; ATTEND Internal Medicine Pulmonary Disease
PROC: 30233N1 Transfusion of Nonautologous Red Blood Cells into Peripheral Vein, Percutaneous Approach (ICD-10-PCS; principal; 2024-05-16)
DX: K92.2 Gastrointestinal hemorrhage, unspecified (principal); N17.0 Acute kidney failure with tubular necrosis; S14.107A Unspecified injury at C7 level of cervical spinal cord, initial encounter; R53.2 Functional quadriplegia; E87.1 Hypo-osmolality and hyponatremia; D62 Acute posthemorrhagic anemia; E87.8 Other disorders of electrolyte and fluid balance, not elsewhere classified; I10 Essential (primary) hypertension; E03.9 Hypothyroidism, unspecified; X58.XXXA Exposure to other specified factors, initial encounter; Z74.01 Bed confinement status; Z90.49 Acquired absence of other specified parts of digestive tract; Z93.2 Ileostomy status; Z88.2 Allergy status to sulfonamides; Z88.1 Allergy status to other antibiotic agents; Z87.11 Personal history of peptic ulcer disease; Z82.49 Family history of ischemic heart disease and other diseases of the circulatory system; Z87.891 Personal history of nicotine dependence; Y93.89 Activity, other specified; Y92.89 Other specified places as the place of occurrence of the external cause; Y99.8 Other external cause status; Z93.3 Colostomy status
CPT/HCPCS: 36415; 74176; 80048; 80053; 82728; 83036; 83540; 83550; 84439; 84443; 84481; 85014; 85018; 85025; 85610; 85730; 86850; 86900; 86901; 86920; 93005; C9113; G0378; J2405; J3480

== ENCOUNTER 2024-06-22 17:03 | Inpatient (IN) | payer MEDICAID ==
[~2024-06-22] VITALS: Ht 167.6 cm; Wt 83.0 kg
[~2024-06-22 17:03] MED LIST changes: -CEPH500C PO; +PANT40T PO; -PANT40TA2 PO; +SUCR1TAB31 OR
[2024-06-22] MEDS: ONDANSETRON ODT 4 MG TAB PO ONE (19:15)
[2024-06-22] MEDS ORDERED: MORPHINE SULFATE 4 MG/ML SYR/VIAL IM ONE (19:15)
[2024-06-22] MEDS: HYDROcodone-ACET 10/325MG TAB PO ONE (20:00)
[2024-06-22 20:04] LABS: Basophils # (auto) 0 10 ^3/uL (0-0.2); Basophils % (auto) 0.5 % (0.0-2.0); Eosinophils # (auto) 0.3 10 ^3/uL (0-0.8); Eosinophils % (auto) 2.8 % (0.0-7.0); Hematocrit 24.4 % (36.0-46.0); Hemoglobin 7.9 g/dL (12.2-16.2); Lymphocytes # (auto) 2.5 10 ^3/uL (0.4-5.4); Lymphocytes % (auto) 27.2 % (10.0-50.0); Mean Corpuscular Hemoglobin 31.3 pg (28.0-32.0); Mean Corpuscular Hgb Conc. 32.5 g/dL (32.0-36.0); Mean Corpuscular Volume 96.2 fL (80.0-100.0); Monocytes # (auto) 0.7 10 ^3/uL (0-1.3); Monocytes % (auto) 7.2 % (0.0-12.0); Neutrophils # (auto) 5.6 10 ^3/uL (1.6-8.6); Neutrophils % (auto) 62.3 % (37.0-80.0); Red Blood Cells 2.54 10^6/uL (4.0-5.20); Red Cell Distribution Width 18.7 % (11.8-14.3)
[2024-06-22 21:21] LABS: Alanine Aminotransferase 68 U/L (7-40); Albumin 3.8 g/dL (3.2-4.8); Alkaline Phosphatase 164 U/L (46-116); Anion Gap 11 (5-15); Aspartate Aminotransferase 112 U/L (13-40); BUN/Creatinine Ratio 3.3 (10.0-20.0); Bilirubin, Total 0.4 mg/dL (0.2-1.0); Blood Urea Nitrogen 6 mg/dL (9-23); Calcium 8.8 mg/dL (8.7-10.4); Carbon Dioxide 21 mmol/L (20-30); Chloride 107 mmol/L (98-107); Glucose 104 mg/dL (74-106); Potassium 3.9 mmol/L (3.5-5.1); Sodium 139 mmol/L (136-145); Total Protein 7.4 g/dL (5.7-8.2)
[2024-06-22] MEDS: PIPERACILLIN-TAZO 4.5GM 100 ML IV ONE (23:12)
[2024-06-23] VITALS (8 sets, daily range): BP systolic 122–158; BP diastolic 57–77; PULSE 43–89; RESP 15–20; TEMP 97.5–98.3; O2SAT 97–100
[2024-06-23] MEDS ORDERED: hydrALAZINE HCL 20 MG/ML VL IV PRN (01:30)
[2024-06-23] MEDS ORDERED: DOCUSATE SOD 100 MG CAP PO PRN (01:30)
[2024-06-23] MEDS ORDERED: MORPHINE SULFATE INJ 2 MG/ml SYRG IV PRN (01:30)
[2024-06-23] MEDS ORDERED: IBUPROFEN 600 MG TAB PO PRN (01:30)
[2024-06-23] MEDS ORDERED: ONDANSETRON HCL 4 MG/2 ML VIAL IV PRN (01:30)
[2024-06-23] MEDS ORDERED: NITROGLYCERIN 0.4 MG SL TAB SL PRN (01:30)
[2024-06-23] MEDS: SODIUM CHLORIDE 0.9% 1,000 ML IV SCH (02:24)
[2024-06-23] MEDS: HYDROcodone-ACET 5/325MG TAB PO PRN (04:09)
[2024-06-23] MEDS: LEVOTHYROXINE SODIUM 50 MCG TAB PO SCH (06:08)
[2024-06-23 09:02] LABS: Basophils # (auto) 0.1 10 ^3/uL (0-0.2); Mean Corpuscular Hgb Conc. 33.1 g/dL (32.0-36.0); Monocytes # (auto) 0.6 10 ^3/uL (0-1.3); Neutrophils # (auto) 3.7 10 ^3/uL (1.6-8.6)
[2024-06-23 09:04] LABS: Basophils % (auto) 1.3 % (0.0-2.0); Eosinophils # (auto) 0.3 10 ^3/uL (0-0.8); Eosinophils % (auto) 4.6 % (0.0-7.0); Hematocrit 23.3 % (36.0-46.0); Hemoglobin 7.7 g/dL (12.2-16.2); Lymphocytes # (auto) 2.4 10 ^3/uL (0.4-5.4); Lymphocytes % (auto) 33.7 % (10.0-50.0); Mean Corpuscular Hemoglobin 32.1 pg (28.0-32.0); Mean Corpuscular Volume 96.7 fL (80.0-100.0); Monocytes % (auto) 8.1 % (0.0-12.0); Neutrophils % (auto) 52.3 % (37.0-80.0); Nucleated Red Blood Cells % 0.1 %; Red Blood Cells 2.41 10^6/uL (4.0-5.20); Red Cell Distribution Width 19.3 % (11.8-14.3); White Blood Cell 7.1 10^3/uL (4.4-10.8)
[2024-06-23 09:31] LABS: Alanine Aminotransferase 61 U/L (7-40); Albumin 3.6 g/dL (3.2-4.8); Alkaline Phosphatase 131 U/L (46-116); Anion Gap 8 (5-15); Aspartate Aminotransferase 95 U/L (13-40); Calcium 8.7 mg/dL (8.7-10.4); Carbon Dioxide 23 mmol/L (20-30); Chloride 107 mmol/L (98-107); Glucose 95 mg/dL (74-106); Potassium 3.6 mmol/L (3.5-5.1); Sodium 138 mmol/L (136-145)
[2024-06-23 09:32] LABS: Bilirubin, Total 0.5 mg/dL (0.2-1.0); Total Protein 7.2 g/dL (5.7-8.2)
[2024-06-23 09:34] LABS: BUN/Creatinine Ratio 3.4 (10.0-20.0); Blood Urea Nitrogen < 5 mg/dL (9-23)
[2024-06-23] MEDS: CEFEPIME 1GM/ 50ML 50 ML IV SCH (09:58)
[2024-06-23] MEDS ORDERED: FAMOTIDINE (10MG/ML) 2ML VL IV SCH (10:00)
[2024-06-23 10:17] LABS: INR 1.14 (0.9-1.15); Partial Thromboplastin Time 28.5 SEC (24.5-34.5)
[2024-06-23] MEDS: SUCRALFATE 1 GM TAB PO SCH (10:23)
[2024-06-23] MEDS: amLODIPine BESYLATE 5 MG TAB PO ONE (10:24)
[2024-06-23] MEDS: PANTOPRAZOLE 40 MG TAB PO SCH (10:24)
[2024-06-23 10:56] LABS: Triglycerides 88 mg/dL (< 150)
[2024-06-23 10:57] LABS: LDL Cholesterol 57 mg/dL (< 100)
[2024-06-23 10:58] LABS: Cholesterol 164 mg/dL (< 200); HDL Cholesterol 88 mg/dL (40-59)
[2024-06-23 11:25] LABS: Lipase 35 U/L (12-53)
[2024-06-24] VITALS (8 sets, daily range): BP systolic 111–142; BP diastolic 44–73; PULSE 43–89; RESP 14–20; TEMP 98–98.8; O2SAT 97–100
[2024-06-24 08:24] LABS: Basophils # (auto) 0.1 10 ^3/uL (0-0.2); Basophils % (auto) 0.8 % (0.0-2.0); Eosinophils # (auto) 0.3 10 ^3/uL (0-0.8); Eosinophils % (auto) 4.1 % (0.0-7.0); Hematocrit 21.7 % (36.0-46.0); Hemoglobin 7.1 g/dL (12.2-16.2); Lymphocytes # (auto) 2.1 10 ^3/uL (0.4-5.4); Lymphocytes % (auto) 28.4 % (10.0-50.0); Mean Corpuscular Hemoglobin 31.6 pg (28.0-32.0); Mean Corpuscular Hgb Conc. 32.6 g/dL (32.0-36.0); Mean Corpuscular Volume 97.1 fL (80.0-100.0); Monocytes # (auto) 0.5 10 ^3/uL (0-1.3); Monocytes % (auto) 7.3 % (0.0-12.0); Neutrophils # (auto) 4.4 10 ^3/uL (1.6-8.6); Neutrophils % (auto) 59.4 % (37.0-80.0); Nucleated Red Blood Cells % 0.1 %; Red Blood Cells 2.24 10^6/uL (4.0-5.20); Red Cell Distribution Width 19.2 % (11.8-14.3); White Blood Cell 7.3 10^3/uL (4.4-10.8)
[2024-06-24 08:29] LABS: Alanine Aminotransferase 46 U/L (7-40); Albumin 3.1 g/dL (3.2-4.8); Alkaline Phosphatase 121 U/L (46-116); Anion Gap 7 (5-15); Aspartate Aminotransferase 75 U/L (13-40); Calcium 8.3 mg/dL (8.7-10.4); Carbon Dioxide 22 mmol/L (20-30); Chloride 108 mmol/L (98-107); Glucose 87 mg/dL (74-106); Potassium 3.7 mmol/L (3.5-5.1); Sodium 137 mmol/L (136-145)
[2024-06-24 08:30] LABS: Bilirubin, Total 0.3 mg/dL (0.2-1.0); Total Protein 6.1 g/dL (5.7-8.2)
[2024-06-24 08:32] LABS: Blood Urea Nitrogen < 5 mg/dL (9-23)
[2024-06-24 16:52] LABS: COVID19 ANTIGEN SOFIA FIA NEGATIVE (NEGATIVE)
[2024-06-24 18:13] LABS: Hematocrit 26.6 % (36.0-46.0); Hemoglobin 8.7 g/dL (12.2-16.2)
[2024-06-24 18:48] LABS: Urine Bacteria FEW /hpf (None Seen); Urine Blood 2+ /uL (Negative); Urine Clarity Ex.Turbid (Clear); Urine Color Light-Brown (Yellow); Urine Mucus FEW (None Seen); Urine Protein, UAD 1+ (Negative); Urine Specific Gravity 1.015 (1.001-1.035); Urine Urobilinogen Normal (Negative); Urine WBC 2653 /hpf (0 - 5); Urine WBC Clumps PRESENT /hpf (None Seen)
[2024-06-24 19:00] LABS: Amphetamine Screen, Urine Neg (NEGATIVE); Barbiturate Scree,Urine Neg (NEGATIVE); Benzodiazephine Screen, Urine Neg (NEGATIVE); Cocaine Screen, Urine Neg (NEGATIVE)
[2024-06-24 19:01] LABS: Cannabinoid Screen, Urine Neg (NEGATIVE); Opiate Scree,Urine Pos (NEGATIVE); Phencyclidine Screen, Urine Neg (NEGATIVE)
[2024-06-24] MEDS: diphenhdrAMINE HCL 25 MG CAP PO PRN (22:28)
[2024-06-25] VITALS (10 sets, daily range): BP systolic 106–151; BP diastolic 59–79; PULSE 52–86; RESP 12–20; TEMP 97.8–98.6; O2SAT 96–100
[2024-06-25 06:45] LABS: Basophils # (auto) 0 10 ^3/uL (0-0.2); Hemoglobin 7.7 g/dL (12.2-16.2); Mean Corpuscular Hgb Conc. 33.4 g/dL (32.0-36.0); Red Cell Distribution Width 19.3 % (11.8-14.3)
[2024-06-25 06:49] LABS: Basophils % (auto) 0.5 % (0.0-2.0); Eosinophils # (auto) 0.4 10 ^3/uL (0-0.8); Eosinophils % (auto) 4.9 % (0.0-7.0); Hematocrit 23.1 % (36.0-46.0); Lymphocytes # (auto) 1.9 10 ^3/uL (0.4-5.4); Lymphocytes % (auto) 25.5 % (10.0-50.0); Mean Corpuscular Hemoglobin 31.8 pg (28.0-32.0); Mean Corpuscular Volume 95.4 fL (80.0-100.0); Monocytes # (auto) 0.6 10 ^3/uL (0-1.3); Monocytes % (auto) 7.8 % (0.0-12.0); Neutrophils # (auto) 4.6 10 ^3/uL (1.6-8.6); Neutrophils % (auto) 61.3 % (37.0-80.0); Red Blood Cells 2.42 10^6/uL (4.0-5.20); White Blood Cell 7.6 10^3/uL (4.4-10.8)
[2024-06-25 07:28] LABS: Anion Gap 6 (5-15); Carbon Dioxide 24 mmol/L (20-30); Chloride 106 mmol/L (98-107); Potassium 3.5 mmol/L (3.5-5.1); Sodium 136 mmol/L (136-145)
[2024-06-25 07:29] LABS: Calcium 8.5 mg/dL (8.7-10.4)
[2024-06-25 07:34] LABS: Glucose 82 mg/dL (74-106)
[2024-06-25 07:40] LABS: BUN/Creatinine Ratio 4.5 (10.0-20.0); Blood Urea Nitrogen < 5 mg/dL (9-23)
[2024-06-25 08:10] LABS: Bilirubin, Direct 0.2 mg/dL (<0.3); Bilirubin, Total 0.4 mg/dL (0.2-1.0)
[2024-06-25] MEDS ORDERED: LIDOCAINE VISCOUS 2% 15ML UD ONE (12:42)
[2024-06-25] MEDS ORDERED: SODIUM CHLORIDE LOCK 10 ML ONE (12:42)
[2024-06-25] MEDS: fentaNYL CITRATE 100 MCG/2 ML VL ONE (14:35)
[2024-06-25] MEDS: MIDAZOLAM HCL 5 MG/ML-1ML VIAL ONE (14:35)
[2024-06-26] MEDS: CEPHALEXIN 250 MG CAP PO SCH (00:06)
[2024-06-26 01:00] VITALS: BP 120/57; PULSE 57; RESP 16; TEMP 98.2; O2SAT 98
[2024-06-26 05:00] VITALS: BP 150/86; PULSE 72; RESP 18; TEMP 96.9; O2SAT 98
[2024-06-26 08:00] VITALS: PULSE 68; RESP 18; O2SAT 100
[2024-06-26 09:00] VITALS: BP 138/53; PULSE 68; RESP 18; TEMP 98.1; O2SAT 100
[2024-06-26 09:12] LABS: Hepatitis B Surface Antigen Negative (Negative)
[2024-06-26 09:34] LABS: Hepatitis A Ab IgM Negative; Hepatitis B Core IgM Negative
[2024-06-26 09:38] LABS: Hepatitis C Antibody Reactive (Negative)
[2024-06-26 11:32] LABS: Basophils # (auto) 0 10 ^3/uL (0-0.2); Basophils % (auto) 0.7 % (0.0-2.0); Eosinophils # (auto) 0.3 10 ^3/uL (0-0.8); Eosinophils % (auto) 4.3 % (0.0-7.0); Hematocrit 23.4 % (36.0-46.0); Hemoglobin 7.6 g/dL (12.2-16.2); Lymphocytes # (auto) 1.9 10 ^3/uL (0.4-5.4); Lymphocytes % (auto) 27.1 % (10.0-50.0); Mean Corpuscular Hemoglobin 31.3 pg (28.0-32.0); Mean Corpuscular Hgb Conc. 32.6 g/dL (32.0-36.0); Monocytes # (auto) 0.6 10 ^3/uL (0-1.3); Monocytes % (auto) 8.1 % (0.0-12.0); Neutrophils # (auto) 4.3 10 ^3/uL (1.6-8.6); Neutrophils % (auto) 59.8 % (37.0-80.0); Red Blood Cells 2.44 10^6/uL (4.0-5.20); Red Cell Distribution Width 19.3 % (11.8-14.3); White Blood Cell 7.2 10^3/uL (4.4-10.8)
[2024-06-26] MEDS: Ensure HIGH Protein Chocolate 8oz Bottle PO SCH (12:00)
[2024-06-26 12:23] LABS: Alanine Aminotransferase 33 U/L (7-40); Alkaline Phosphatase 114 U/L (46-116); Anion Gap 7 (5-15); Aspartate Aminotransferase 52 U/L (13-40); BUN/Creatinine Ratio 4.1 (10.0-20.0); Blood Urea Nitrogen 5 mg/dL (9-23); Calcium 8.3 mg/dL (8.7-10.4); Carbon Dioxide 22 mmol/L (20-30); Chloride 106 mmol/L (98-107); Glucose 107 mg/dL (74-106); Potassium 3.6 mmol/L (3.5-5.1); Sodium 135 mmol/L (136-145)
[2024-06-26 12:24] LABS: Bilirubin, Total 0.3 mg/dL (0.2-1.0); Total Protein 6.1 g/dL (5.7-8.2)
[2024-06-26] MEDS ORDERED: CEFD300C2 PO (12:31)
[2024-06-26] MEDS ORDERED: LEVO150T10 PO (12:31)
== END 2024-06-26 18:00 | disposition home or self-care (01) | DRG 253 ==
LOC: ER 17:03 → EDBD 17:03 → OVERFLOW 06-23 01:50 → EAST 06-23 03:20
PROVIDERS: ADMIT Internal Medicine; ATTEND Internal Medicine
PROC: 0DJ08ZZ Inspection of Upper Intestinal Tract, Via Natural or Artificial Opening Endoscopic (ICD-10-PCS; principal; 2024-06-25 14:29)
DX: K31.811 Angiodysplasia of stomach and duodenum with bleeding (principal); N17.0 Acute kidney failure with tubular necrosis; G82.20 Paraplegia, unspecified; D62 Acute posthemorrhagic anemia; K81.1 Chronic cholecystitis; K76.0 Fatty (change of) liver, not elsewhere classified; Z88.2 Allergy status to sulfonamides; Z20.822 Contact with and (suspected) exposure to COVID-19; I12.9 Hypertensive chronic kidney disease with stage 1 through stage 4 chronic kidney disease, or unspecified chronic kidney disease; E66.3 Overweight; Z68.29 Body mass index [BMI] 29.0-29.9, adult; N18.30 Chronic kidney disease, stage 3 unspecified; E03.9 Hypothyroidism, unspecified; K21.9 Gastro-esophageal reflux disease without esophagitis; N39.0 Urinary tract infection, site not specified; K44.9 Diaphragmatic hernia without obstruction or gangrene; Z93.3 Colostomy status; Z87.11 Personal history of peptic ulcer disease; Z82.49 Family history of ischemic heart disease and other diseases of the circulatory system; Z87.891 Personal history of nicotine dependence; Z90.49 Acquired absence of other specified parts of digestive tract; Z82.3 Family history of stroke; Z82.5 Family history of asthma and other chronic lower respiratory diseases; Z83.3 Family history of diabetes mellitus
CPT/HCPCS: 36415; 43235; 71045; 74176; 76705; 80048; 80053; 80061; 80074; 80076; 80307; 81001; 82270; 83690; 84439; 84443; 85014; 85018; 85025; 85610; 85730; 86850; 86900; 86901; 87081; 87426; 96365; 97163; G0378; J2250; J2543; J3490